=== PATIENT | female | born 1975 | race Caucasian/White ===

== ENCOUNTER 2021-08-12 09:48 | Emergency (ER) | payer OTHER, SELFPAY ==
--- NOTE | ~2021-08-12 | XR_ITS ---
EXAMINATION: XR HIP, RIGHT CLINICAL INFORMATION: Right hip pain. COMPARISON: None. TECHNIQUE: Two views of the right hip. FINDINGS: No evidence of acute fractures or malalignment. The femoral heads are well-seated in their respective acetabula. Sclerosis at the pubic symphysis. Mild enthesophytes in the superior left acetabulum. Nonobstructive bowel gas pattern. Moderate stool burden. No unexpected radiopaque foreign bodies. XR/XR hip RT w [id number] IMPRESSION: No acute fractures or malalignment. Degenerative changes at the pubic symphysis, correlate for osteitis pubis.
--- NOTE | ~2021-08-12 | CT_ITS ---
EXAMINATION: CT BRAIN AND CT CERVICAL SPINE WITHOUT CONTRAST. CLINICAL INFORMATION: Fall. COMPARISON: None TECHNIQUE: 5 mm thin axial and reformatted 2 mm thin sagittal and coronal images of brain were obtained. Subsequently axial 3 mm thin and reformatted 2 mm thin sagittal and coronal images of cervical spine were obtained. DLP 1172. FINDINGS: Brain: There is no acute intra-axial, extra-axial bleed, masses or midline shift. Both lateral ventricles are symmetrical in size and configuration without enlargement. There is no acute infarct in evolution. There is no edema. The davis to white matter differentiation is maintained normal. Bone windows reveal no calvarial abnormality. Bilateral paranasal sinuses and mastoid air cells are well-aerated. Cervical spine: There is mild straightening of cervical lordosis. The vertebral heights and alignment is normal. There is loss of C5-C6 disc height with minimal ventral and posterior spondylosis at C5-C6 and C6-C7 disc levels. Rest of the disc heights are normal. The craniovertebral junction and C1-C2 alignment is normal. The prevertebral and paravertebral soft tissues are normal. The airway is widely patent. The thyroid lobes are symmetrical and normal. The lung apices are clear. CT/CT cervical spine wo con IMPRESSION: No acute intracranial process seen. Degenerative disc changes C5-C6 disc level with posterior spondylosis at the C5-C6 and C6 facet 7 disc levels. There is no visible acute fracture or dislocation seen in cervical spine.
--- NOTE | ~2021-08-12 | XR_ITS ---
EXAMINATION: XR SHOULDER, RIGHT CLINICAL INFORMATION: Fall. Limited range of motion. COMPARISON: None TECHNIQUE: Three views of the right shoulder. FINDINGS: The bones and soft tissues are normal. No fracture. Glenohumeral and acromioclavicular alignment is anatomic with normal joint space. No abnormal soft tissue calcifications. XR/XR shoulder RT min 2V IMPRESSION: Normal right shoulder.
--- NOTE | ~2021-08-12 | CT_ITS ---
EXAMINATION: CT BRAIN AND CT CERVICAL SPINE WITHOUT CONTRAST. CLINICAL INFORMATION: Fall. COMPARISON: None TECHNIQUE: 5 mm thin axial and reformatted 2 mm thin sagittal and coronal images of brain were obtained. Subsequently axial 3 mm thin and reformatted 2 mm thin sagittal and coronal images of cervical spine were obtained. DLP 1172. FINDINGS: Brain: There is no acute intra-axial, extra-axial bleed, masses or midline shift. Both lateral ventricles are symmetrical in size and configuration without enlargement. There is no acute infarct in evolution. There is no edema. The davis to white matter differentiation is maintained normal. Bone windows reveal no calvarial abnormality. Bilateral paranasal sinuses and mastoid air cells are well-aerated. Cervical spine: There is mild straightening of cervical lordosis. The vertebral heights and alignment is normal. There is loss of C5-C6 disc height with minimal ventral and posterior spondylosis at C5-C6 and C6-C7 disc levels. Rest of the disc heights are normal. The craniovertebral junction and C1-C2 alignment is normal. The prevertebral and paravertebral soft tissues are normal. The airway is widely patent. The thyroid lobes are symmetrical and normal. The lung apices are clear. CT/CT head/brain wo con IMPRESSION: No acute intracranial process seen. Degenerative disc changes C5-C6 disc level with posterior spondylosis at the C5-C6 and C6 facet 7 disc levels. There is no visible acute fracture or dislocation seen in cervical spine.
--- NOTE | ~2021-08-12 | XR_ITS ---
EXAMINATION: XR ELBOW, RIGHT CLINICAL INFORMATION: Fall. COMPARISON: None TECHNIQUE: AP, lateral, and oblique views of the right elbow. FINDINGS: The bones and soft tissues are normal. No fracture or joint effusion. Alignment is anatomic. Joint spaces are maintained. XR/XR elbow RT min 3V IMPRESSION: Unremarkable right elbow exam.
[2021-08-12 11:19] VITALS: BP 123/58; PULSE 75; RESP 16; TEMP 36.7; O2SAT 99; BMI 30.9
--- NOTE | 2021-08-12 13:45 | ED_ITS ---
HPI - Fall General Chief Complaint: Fall Stated Complaint: fall on ice arm leg pain Time Seen by Provider: 08/12/21 13:19 Source: patient Mode of arrival: ambulatory Limitations: no limitations History of Present Illness HPI Narrative: 46-year-old female presents to the emergency department complaining of neck pain headache right shoulder right elbow right hip pain. 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 She denies loss of consciousness she states she does not take blood thinners not take any medications is not taking for pain. complaint: fall Onset (ago): hour(s) Related Data Allergies Allergy/AdvReac Type Severity Reaction Status Date / Time No Known Allergies Allergy Verified 08/12/21 11:21 Review of Systems Review of Systems: Review of systems: General: fall Patient denies any fever chills recent illness Musculoskeletal: Neck shoulder hip back all on the right side or body aches or other injuries HEENT: headache denies runny nose, ear pain Respiratory: denies shortness of breath, cough Cardiovascular: no chest pain or palpitations : denies dysuria, frequency Abdomen: no nausea vomiting denies abdominal pain Extremities: no swelling, no pain Skin: no diaphoresis Yes all other systems are reviewed and are negative PMFSH Past Medical History Medical History (Updated 08/12/21 @ 13:53 by Claudio Farfan DO) No known health problems Social History Social History Patient Tobacco Use Status: Never used Tobacco Use of substances other than those prescribed or required for medical reasons: No Advance Directives: No Physical Exam Vital Signs: Vital Signs: Last Vital Signs Temp 98.5 F 08/12/21 14:04 Pulse 71 08/12/21 14:04 Resp 14 08/12/21 14:04 BP 105/59 L 08/12/21 14:04 Pulse Ox 95 08/12/21 14:04 BMI result Body Mass Index 30.9 General: Well-appearing well-nourished in no signs of distress HEENT: Normocephalic atraumatic Neck: No signs of JVD, no masses no tenderness or lymphadenopathy Cardiovascular: Regular rate and rhythm Respiratory: Clear to auscultation bilaterally Abdomen: Soft nontender no masses Extremities: Normal pedal pulses no signs of edema full range of motion of shoulder elbow arm wrist as well as hip pelvis knee and ankle. Patient does have some tenderness to palpation of the greater trochanter on the right side. Skin: Dry warm no rashes Back: No tenderness full ROM MDM - Fall MDM Narrative Medical decision making narrative: Patient had a negative x-ray of her elbow no other x-rays or CT scans were done I will add on a CT head and neck as well as x -ray of the shoulder pelvis and right hip. Patient does have full range of motion I think this is likely a contusion from the fall. I will give patient Tylenol ibuprofen will await further imaging. The x-ray of the shoulder hip pelvis and CT head neck are all negative patient looks well will discharge home. Discharge Plan Discharge Clinical Impression: Concussion without loss of consciousness, Fall due to ice or snow, Right shoulder strain, Contusion of hip, right, Head injury Patient Disposition: Home, Self-Care Instructions: Concussion (ED), Head Injury (ED), Hip Contusion (ED) Additional Instructions: Please call manuela Barrios you have any other concerns please do not hesitate to com e back to emergency room.
[2021-08-12 14:04] VITALS: BP 105/59; PULSE 71; RESP 14; TEMP 36.9; O2SAT 95
[2021-08-12] MEDS: Ibuprofen 400 MG TABLET PO (14:25)
[2021-08-12] MEDS: Acetaminophen 325 MG TABLET 650 MG PO (14:26)
--- NOTE | 2021-08-12 14:36 | PC.NURSE ---
pt report slipping today and falling on her right side, reports right elbow, right hip, right back, pain, denies loc, vs stable
--- NOTE | 2021-08-12 15:48 | PC.NURSE ---
pt reports feeling better, pain at 6/10
== END 2021-08-12 16:49 | disposition home or self-care (01) ==
LOC: HO.ED 13:59
PROVIDERS: Emergency Provider Student in an Organized Health Care Education/Training Program
DX: S06.0X0A Concussion without loss of consciousness, initial encounter (principal); S46.911A Strain of unspecified muscle, fascia and tendon at shoulder and upper arm level, right arm, initial encounter; S70.01XA Contusion of right hip, initial encounter; W00.0XXA Fall on same level due to ice and snow, initial encounter; Y93.01 Activity, walking, marching and hiking; Y92.219 Unspecified school as the place of occurrence of the external cause; Y99.0 Civilian activity done for income or pay
CPT/HCPCS: 70450; 72125; 73030; 73080; 73502; 99284

== ENCOUNTER → 2021-10-06 10:41 | Outpatient (BNVA) | payer OTHER, SELFPAY | PROVIDERS: Visit Provider Physician Assistant Medical | DX: M54.50 Low back pain, unspecified (principal) | CPT/HCPCS: 72110; 99203 ==

== ENCOUNTER → 2021-12-10 12:44 | Outpatient (BNVA) | payer OTHER, SELFPAY | PROVIDERS: Visit Provider Internal Medicine | DX: R10.2 Pelvic and perineal pain (principal) | CPT/HCPCS: 99213 ==